=== PATIENT | male | born 1960 | race Caucasian/White ===

== ENCOUNTER 2019-06-05 14:11 | Outpatient (CLI) | payer OTHER, SELFPAY ==
--- NOTE | ~2019-06-05 | XR_ITS ---
EXAMINATION: XR chest 2V DATE: 06/05/2019 14:25 INDICATION: Shortness of breath. TECHNIQUE: Frontal and lateral views of the chest were obtained. COMPARISON: None. FINDINGS: Lung volumes are small. There are airspace opacities at the lung bases. There are small ple ural effusions. Calcified pulmonary nodules and calcified hilar and mediastinal lymph nodes are consi stent with old granulomatous disease. The heart size is normal. IMPRESSION: 1. Airspace opacities at the lung bases, consistent with atelectasis versus pneumonia. 2. Small pleural effusions. Reviewed, dictated and finalized at location A. [employer] IMPRESSION: 1. Airspace opacities at the lung bases, consistent with atelectasis versus pne umonia. 2. Small pleural effusions.
== END 2019-06-05 14:12 | disposition home or self-care (01) ==
LOC: ANHBWCIMG 14:17
PROVIDERS: PCP Family Medicine; Visit Provider Family Medicine
DX: R06.00 Dyspnea, unspecified (principal); R91.8 Other nonspecific abnormal finding of lung field; J90 Pleural effusion, not elsewhere classified
CPT/HCPCS: 71046

== ENCOUNTER 2019-06-19 09:56 | Outpatient (CLI) | payer OTHER, SELFPAY ==
[2019-06-19 17:20] LABS: Cholesterol 210 mg/dL (0-200); HDL Direct 34 mg/dL; Triglycerides 215 mg/dL (<150)
[2019-06-19 17:27] LABS: Alanine Aminotransferase 16 U/L (4-50); Albumin Level 3.7 g/dL (3.5-5.1); Alkaline Phosphatase 112 U/L (38-126); Aspartate Amino Transferase 23 U/L (17-59); Bilirubin,Total 0.5 mg/dL (0.2-1.3); Blood Urea Nitrogen 43 mg/dL (9-20); Calcium 8.8 mg/dL (8.4-10.2); Carbon Dioxide 24 mmol/L (22-30); Chloride 110 mmol/L (98-107); Estimated Glomerular Filt Rate 22; Glucose 118 mg/dL (75-110); Potassium 5.9 mmol/L (3.4-5.0); Sodium 140 mmol/L (137-145)
[2019-06-19 17:29] LABS: NT Pro B Type Natriuretic Pept 11500 PG/ML (5-100)
[2019-06-19 17:32] LABS: LDL Cholesterol Direct 124 mg/dL
== END 2019-06-19 09:57 | disposition home or self-care (01) ==
LOC: ANHBWCLAB 10:00
PROVIDERS: PCP Family Medicine; Visit Provider Internal Medicine Cardiovascular Disease
DX: I50.9 Heart failure, unspecified (principal); E78.5 Hyperlipidemia, unspecified
CPT/HCPCS: 36415; 80053; 80061; 83735; 83880

== ENCOUNTER 2019-06-19 10:48 | Outpatient (CLI) | payer OTHER, SELFPAY ==
[2019-06-19 17:37] LABS: Iron 59 ug/dL (49-181)
[2019-06-19 17:48] LABS: Percent Iron Saturation 21 % (20-50)
[2019-06-19 18:09] LABS: Vitamin D 25 Hydroxy < 12.8 ng/mL
[2019-06-19 18:14] LABS: Hemoglobin A1C 7.5 % (<5.7)
[2019-06-19 18:26] LABS: Folic Acid 5.8 ng/mL (2.76->20)
[2019-06-22 20:50] LABS: PSA, Free 0.24 ng/mL; PSA, Total 0.5 ng/mL (<=4.0)
== END 2019-06-19 10:49 | disposition home or self-care (01) ==
PROVIDERS: PCP Family Medicine; Visit Provider Family Medicine
DX: E11.42 Type 2 diabetes mellitus with diabetic polyneuropathy (principal); G62.9 Polyneuropathy, unspecified; R79.89 Other specified abnormal findings of blood chemistry; N52.1 Erectile dysfunction due to diseases classified elsewhere; Z12.5 Encounter for screening for malignant neoplasm of prostate
CPT/HCPCS: 36415; 82306; 82607; 82746; 83036; 83540; 83550; 84153; 84154

== ENCOUNTER 2019-06-23 12:32 | Outpatient (CLI) | payer OTHER, SELFPAY ==
--- NOTE | 2019-06-23 12:42 | ECHO_ITS ---
Patient Info Name: Aristides Sommer Age: 59 years : 1960 Gender: Male Ht: 66 in Wt: 190 lbs BSA: 2.03 m2 HR: 88 bpm BP: 182 / 108 mmHg Heart Rhythm: Sinus Rhythm Technical Quality: Good Exam Date: 06/23/2019 1:03 PM Exam Location: [facility] Patient Status: Outpatient Admit Date: 06/23/2019 Staff Ordering Physician: Buzz Pandey DO Head Rigger: Ventura Shi RDCS Attending Provider: Buzz Pandey DO Referring Physician: Dannie WHITT; Exam Type: CA echo doppler color flow Study Info Indications I50.9 - Heart failure, unspecified Complete two-dimensional, color flow and Doppler transthoracic echocardiogram is performed. Strain analysis performed. History/Risk Factors Heart Failure. Summary 1. Left ventricular chamber dimension is moderately enlarged. 2. Basal to mid septal wall is hypokinetic. Basal to mid inferior and posterior wall are hypokinetic. 3. Left ventricular systolic function is moderately reduced, estimated at 40-45%. 4. The left ventricular diastolic function is abnormal. 5. E/e' 15 is elevated. 6. Global longitudinal strain is abnormal at -10.7%. 7. Left atrial chamber dimension is moderately enlarged. 8. There is mild aortic valve sclerosis. 9. The mitral valve has mildly calcified annulus. 10. There is mild to moderate mitral valve regurgitation. Left Ventricle E/e' 15 is elevated. Global longitudinal strain is abnormal at -10.7%. Basal to mid septal wall is hypokinetic. Basal to mid inferior and posterior wall are hypokinetic. Left ventricular chamber dimension is moderately enlarged. Left ventricular systolic function is moderately reduced, estimated at 40-45%. The left ventricular diastolic function is abnormal. Right Ventricle Right ventricular chamber dimension is normal. Right ventricular systolic function is normal. Left Atria Left atrial chamber dimension is moderately enlarged. Right Atria Right atrial chamber dimension is normal. Aortic Valve The aortic valve is trileaflet. There is mild aortic valve sclerosis. There is no aortic valve stenosis. There is no aortic valve regurgitation. Pulmonic Valve There is no pulmonic regurgitation. Mitral Valve The mitral valve has mildly calcified annulus. There is no mitral valve stenosis. There is mild to moderate mitral valve regurgitation. Tricuspid Valve There is no tricuspid valve regurgitation. Pericardium/Pleural There is no pericardial effusion. Inferior Vena Cava Normal inferior vena cava with >50% collapse upon inspiration consistent with normal right atrial pressure, 5 mmHg. Aorta The aortic root size at the sinus of Valsalva is normal. Left Ventricular Outflow Tract Name Value Normal LVOT 2D LVOT Diameter 2.1 cm LVOT Doppler LVOT Peak Gradient 4 mmHg LVOT Mean Gradient 2 mmHg LVOT VTI 19 cm LVOT VTI/AV VTI Ratio 0.6 LVOT Stroke Volume 68 ml LVOT CO 5.9 l/min
== END 2019-06-23 12:33 | disposition home or self-care (01) ==
PROVIDERS: PCP Family Medicine; Visit Provider Internal Medicine Cardiovascular Disease
DX: I50.9 Heart failure, unspecified (principal); I08.3 Combined rheumatic disorders of mitral, aortic and tricuspid valves
CPT/HCPCS: 93306

== ENCOUNTER 2019-07-07 12:16 | Outpatient (CLI) | payer OTHER, SELFPAY ==
--- NOTE | ~2019-07-07 | NM_ITS ---
EXAMINATION: NM akira stress w perfusion DATE: 07/07/2019 15:21 CDT INDICATION: Heart failure TECHNIQUE: Rest images were obtained following intravenous administration of 9.8 mCi Tc99m tetrofosmi n (Myoview). The patient was infused intravenously with Lexiscan (regadenoson). Then, 28.8 mCi Tc99m tetrofosmin (Myoview) was administered intravenously, and stress images were obtained. Data was recon structed into short axis and horizontal and vertical long axis SPECT images. Gated SPECT images were also obtained. COMPARISON: None. FINDINGS: There are moderate-sized reversible perfusion abnormalities of the inferior and lateral wal ls. There is a small fixed perfusion abnormality of the inferior and lateral vasquez.. . Left ventricu lar ejection fraction measures 48%. IMPRESSION: 1. Moderate reversible perfusion abnormality of the inferior and lateral vasquez, compatible with ische pee. Small fixed perfusion abnormality involving the same area, consistent with infarction. 2. Decreased left ventricular ejection fraction measuring 48%. Reviewed, dictated and finalized at location A. IMPRESSION: 1. Moderate reversible perfusion abnormality of the inferior and lateral vasquez, compatible with ischemia. Small fixed perfusion abnormality involving the same area, consistent with infarction. 2. Decreased left ventricular ejection fraction measuring 48%.
--- NOTE | 2019-07-07 10:02 | EST_ITS ---
Patient Info Name: Aristides Sommer Age: 59 years : 1960 Gender: Male Ht: 66 in Wt: 190 lbs BSA: 2.03 m2 Exam Date: 07/07/2019 11:51 AM Exam Location: [facility] Stress Patient Status: Preadmit Admit Date: 07/07/2019 Staff Ordering Physician: Buzz Pandey DO Attending Provider: Buzz Pandey DO Exercise Technologist: Flor Mccoy RDCS Exercise Physician: Buzz Pandey DO Exam Type: CA stress akira w NM Study Info Indications I50.9 - Heart failure, unspecified A regadenoson stress test was performed. Summary 1. 1. Negative lexiscan stress test for ischemic ST changes by ECG criteria. 2. 2. Baseline hypertension. 3. 3. Nuclear scan to follow and will be reported separately. Please correlate with it. 4. 4. Patient informed of the above results. Protocol: Lexiscan Stress ECG Details Stage: REST Duration (min): 3 min : 25 sec HR (bpm): 85 SBP (mmHg): 147 DBP (mmHg): 76 Stage: REST Duration (min): 12 min : 39 sec HR (bpm): 80 SBP (mmHg): 147 DBP (mmHg): 76 Stage: STAGE 1 Duration (min): 0 min : 59 sec HR (bpm): 87 SBP (mmHg): 150 DBP (mmHg): 80 Stage: RECOVERY Duration (min): 1 min : 0 sec HR (bpm): 90 SBP (mmHg): 135 DBP (mmHg): 68 Stage: RECOVERY Duration (min): 2 min : 0 sec HR (bpm): 90 SBP (mmHg): 135 DBP (mmHg): 68 Stage: RECOVERY Duration (min): 2 min : 51 sec HR (bpm): 90 SBP (mmHg): 139 DBP (mmHg): 72 Rest HR: 80 bpm Peak HR: 90 bpm Rest Sys BP: 147 mmHg Peak Sys BP: 150 mmHg Max Pred HR: 159 bpm % Max Pred HR: 57 % Target HR: 135 bpm Max RPP: 13,500 bpm*mmHg Termination Reason: Completed protocol Cardiac Symptoms: Shortness of breath Total Time: 1 min : 0 sec Rest John BP: 76 mmHg Peak John BP: 80 mmHg Total Dose: 0.4 mg Resting ECG Sinus rhythm with borderline ST-T wave in inferior leads. Stress ECG No ST changes. Arrhythmias None. Report Signatures
[2019-07-07 13:15] LABS: Blood Urea Nitrogen 64 mg/dL (9-20); Calcium 8.7 mg/dL (8.4-10.2); Carbon Dioxide 24 mmol/L (22-30); Chloride 109 mmol/L (98-107); Estimated Glomerular Filt Rate 21; Glucose 160 mg/dL (75-110); Magnesium 1.9 mg/dL (1.6-2.3); Potassium 4.6 mmol/L (3.4-5.0); Sodium 140 mmol/L (137-145)
== END 2019-07-07 12:17 | disposition home or self-care (01) ==
PROVIDERS: PCP Family Medicine; Visit Provider Internal Medicine Cardiovascular Disease
DX: I50.9 Heart failure, unspecified (principal); R60.9 Edema, unspecified
CPT/HCPCS: 36415; 78452; 80048; 83735; 93017; A9502; J2785

== ENCOUNTER 2020-03-17 16:14 | Outpatient (CLI) | payer OTHER, SELFPAY ==
[2020-03-17 17:57] LABS: Basophils Absolute Auto 0.1 K/mm3 (0.0-0.1); Eosinophils Absolute Auto 0.2 K/mm3 (0-0.3); Eosinophils Percent Auto 2.4 % (0-4.4); Hematocrit 39.4 % (42.0-52.0); Hemoglobin 12.5 g/dL (14.0-18.0); Immature Granulocyte Absolute 0.03 K/mm3 (0.00-0.031); Immature Granulocyte Percent A 0.4 % (0-0.5); Lymphocytes Absolute Auto 1.57 K/mm3 (0.9-3.2); Lymphocytes Percent Auto 19.2 % (18.3-44.2); Mean Corpuscular HGB Conc 31.7 g/dl (32-36); Mean Corpuscular Hemoglobin 30.6 pg (26-34); Mean Corpuscular Volume 96.3 fl (80-100); Mean Platelet Volume 11.4 fl (7.4-10.4); Monocytes Absolute Auto 0.8 K/mm3 (0.1-0.6); Monocytes Percent Auto 9.5 % (2.6-8.5); Neutrophils Absolute Auto 5.5 K/mm3 (1.3-6.7); Neutrophils Percent Auto 67.5 % (45.5-73.1); Platelet Count Result 294 k/mm3 (150-375); Red Blood Count 4.09 M/mm3 (4.6-6.20); Red Cell Distribution Width 13.5 % (11.5-14.5); White Blood Count 8.2 K/mm3 (4.5-10.0)
[2020-03-17 18:01] LABS: Add Urine Microscopic? YES; Appearance Urine Cloudy (Clear); Bacteria Urine Trace /hpf; Bilirubin Urine Negative (Negative); Blood Urine Negative (Negative); Color Urine Yellow (Yellow); Glucose Urine UA 2+ mg/dL (Negative); Ketones Urine Negative (Negative); Leukocyte Esterase Ur Negative LEU/UL (Negative); Mucus Urine Rare /lpf; Nitrate Urine Negative (Negative); Protein Urine 3+ mg/dL (Negative); Specific Grav Ur 1.014 (1.001-1.035); Squamous Epithelial Cell Urine Occasional /hpf (Few); Urobilinogen Urine Negative mg/dL (<2.0); WBC Urine 0-3 /hpf
[2020-03-17 18:05] LABS: Hemoglobin A1C 6.8 % (<5.7)
[2020-03-17 18:12] LABS: Albumin Level 3.3 g/dL (3.5-5.1); Anion Gap 11 mmol/L (8-16); Blood Urea Nitrogen 99 mg/dL (9-20); CRP 3.4 mg/dL (<1.0); Calcium 7.7 mg/dL (8.4-10.2); Carbon Dioxide 24 mmol/L (22-30); Chloride 105 mmol/L (98-107); Estimated Glomerular Filt Rate 9; Glucose 229 mg/dL (75-110); Magnesium 1.6 mg/dL (1.6-2.3); Phosphorus 7.1 mg/dL (2.5-4.5); Potassium 5.1 mmol/L (3.4-5.0); Sodium 140 mmol/L (137-145)
[2020-03-17 18:16] LABS: Complement C3 128 mg/dL (88-165)
[2020-03-17 18:37] LABS: Erythrocyte Sedimentation Rate 123 mm/hr (0-20)
[2020-03-17 18:40] LABS: Hepatitis B Surface Antigen Negative (Negative)
[2020-03-17 18:46] LABS: Creatinine Urine 71.7 mg/dL; HAV RESULT Negative (Negative); Hepatitis B Core IgM Result Negative (Negative)
[2020-03-17 18:51] LABS: HIV 1/2 Ab P24 Ag Result Negative (Negative)
[2020-03-17 18:57] LABS: Hepatitis C Virus Antibody Negative (Negative)
[2020-03-17 19:13] LABS: Vitamin D 25 Hydroxy < 12.8 ng/mL
[2020-03-17 20:11] LABS: Total Protein Urine Random > 600 mg/dL
[2020-03-17 21:34] LABS: Microalbumin Urine Random > 1140.0 mg/L (0-16.7)
[2020-03-20 21:20] LABS: Albumin 3.1 g/dL (3.8-4.8); Alpha 1 Globulin 0.4 g/dL (0.2-0.3); Alpha 2 Globulin 1.3 g/dL (0.5-0.9); Beta 1 Globulin 0.4 g/dL (0.4-0.6); Gamma Globulin 1.1 g/dL (0.8-1.7); Protein, Total 6.6 g/dL (6.1-8.1)
[2020-03-21 22:10] LABS: Kappa\\Lambda Light Chains 1.34 (0.26-1.65); Lambda Light Chain 99.2 mg/L (5.7-26.3)
[2020-03-29 12:52] LABS: Complement Total CH50 >60 U/mL (31-60)
== END 2020-03-17 16:15 | disposition home or self-care (01) ==
LOC: ANHBWCLAB 16:19
PROVIDERS: PCP Family Medicine; Visit Provider Internal Medicine Nephrology
DX: E78.5 Hyperlipidemia, unspecified (principal); D63.1 Anemia in chronic kidney disease; E11.9 Type 2 diabetes mellitus without complications; N39.0 Urinary tract infection, site not specified; I77.6 Arteritis, unspecified; N18.4 Chronic kidney disease, stage 4 (severe); I12.9 Hypertensive chronic kidney disease with stage 1 through stage 4 chronic kidney disease, or unspecified chronic kidney disease; I50.9 Heart failure, unspecified
CPT/HCPCS: 36415; 80069; 80074; 81001; 82043; 82306; 82570; 83036; 83735; 83883; 84155; 84156; 84165; 85025; 85652; 86140; 86160; 86162; 86334; 86703; G0432

== ENCOUNTER 2020-04-01 14:20 | Outpatient (CLI) | payer OTHER, SELFPAY ==
[2020-04-01 17:13] LABS: Basophils Absolute Auto 0.1 K/mm3 (0.0-0.1); Basophils Percent Auto 0.8 % (0.2-1.2); Eosinophils Absolute Auto 0.2 K/mm3 (0-0.3); Eosinophils Percent Auto 1.7 % (0-4.4); Hemoglobin 11.6 g/dL (14.0-18.0); Immature Granulocyte Absolute 0.03 K/mm3 (0.00-0.031); Immature Granulocyte Percent A 0.3 % (0-0.5); Lymphocytes Absolute Auto 1.35 K/mm3 (0.9-3.2); Lymphocytes Percent Auto 15.5 % (18.3-44.2); Mean Corpuscular HGB Conc 32.2 g/dl (32-36); Mean Corpuscular Hemoglobin 30.5 pg (26-34); Mean Corpuscular Volume 94.7 fl (80-100); Mean Platelet Volume 11.3 fl (7.4-10.4); Monocytes Percent Auto 10.9 % (2.6-8.5); Neutrophils Absolute Auto 6.2 K/mm3 (1.3-6.7); Neutrophils Percent Auto 70.8 % (45.5-73.1); Platelet Count Result 303 k/mm3 (150-375); Red Cell Distribution Width 13.1 % (11.5-14.5); White Blood Count 8.7 K/mm3 (4.5-10.0)
[2020-04-01 17:24] LABS: Albumin Level 3.3 g/dL (3.5-5.1); Anion Gap 13 mmol/L (8-16); Blood Urea Nitrogen 94 mg/dL (9-20); Calcium 7.6 mg/dL (8.4-10.2); Carbon Dioxide 23 mmol/L (22-30); Chloride 105 mmol/L (98-107); Estimated Glomerular Filt Rate 9; Glucose 191 mg/dL (75-110); Magnesium 1.6 mg/dL (1.6-2.3); Potassium 5.7 mmol/L (3.4-5.0); Sodium 141 mmol/L (137-145)
[2020-04-01 17:42] LABS: Creatinine Urine 70.9 mg/dL
[2020-04-01 18:52] LABS: Total Protein Urine Random > 600 mg/dL
[2020-04-01 20:20] LABS: Microalbumin Urine Random > 1140.0 mg/L (0-16.7)
== END 2020-04-01 14:21 | disposition home or self-care (01) ==
LOC: ANHBWCLAB 14:24
PROVIDERS: PCP Family Medicine; Visit Provider Internal Medicine Nephrology
DX: N18.4 Chronic kidney disease, stage 4 (severe) (principal); I50.9 Heart failure, unspecified; E78.5 Hyperlipidemia, unspecified; I12.9 Hypertensive chronic kidney disease with stage 1 through stage 4 chronic kidney disease, or unspecified chronic kidney disease
CPT/HCPCS: 36415; 80069; 82043; 82570; 83735; 84156; 85025

== ENCOUNTER 2020-04-22 16:09 | Outpatient (CLI) | payer OTHER, SELFPAY ==
[2020-04-22 17:51] LABS: Albumin Level 3.4 g/dL (3.5-5.1); Anion Gap 9 mmol/L (8-16); Blood Urea Nitrogen 75 mg/dL (9-20); Calcium 7.9 mg/dL (8.4-10.2); Carbon Dioxide 24 mmol/L (22-30); Chloride 110 mmol/L (98-107); Estimated Glomerular Filt Rate 11; Glucose 173 mg/dL (75-110); Magnesium 1.7 mg/dL (1.6-2.3); Phosphorus 5.7 mg/dL (2.5-4.5); Potassium 5.1 mmol/L (3.4-5.0); Sodium 143 mmol/L (137-145)
== END 2020-04-22 16:10 | disposition home or self-care (01) ==
LOC: ANHBWCLAB 16:14
PROVIDERS: PCP Family Medicine; Visit Provider Internal Medicine Nephrology
DX: N18.4 Chronic kidney disease, stage 4 (severe) (principal); I50.9 Heart failure, unspecified; E78.5 Hyperlipidemia, unspecified; N17.9 Acute kidney failure, unspecified; I12.9 Hypertensive chronic kidney disease with stage 1 through stage 4 chronic kidney disease, or unspecified chronic kidney disease
CPT/HCPCS: 36415; 80069; 83735